=== PATIENT | female | born 1950 | race Hispanic/Latino ===

== ENCOUNTER → 2024-03-02 | Outpatient (CLI) | payer OTHER, MEDICARE ==
[~2024-03-02] MED LIST: ATOR10 PO; LOSA25TA41 PO
--- NOTE | 2024-03-04 17:53 | HMCSR ---
APPROVED REPORT Laterality: Bilateral Indications I77.1 Doppler Spectral Velocity Analysis PSV / EDVPSV / EDV ECA (R) 67 / cm/sECA (L) 55 / cm/s dICA (R) 74 / 25 cm/sdICA (L) 75 / 22 cm/s Jennifer (R) 84 / 27 cm/smICA (L) 54 / 15 cm/s pICA (R) 58 / 20 cm/spICA (L) 70 / 21 cm/s dCCA (R) 52 / 13 cm/sdCCA (L) 63 / 15 cm/s mCCA (R) 63 / 15 cm/smCCA (L) 57 / 10 cm/s pCCA (R) 85 / 20 cm/spCCA (L) 77 / 11 cm/s Vert (R) 35 / cm/sVert (L) 57 / cm/s Subl. (R) 113 / cm/sSubl. (L) 72 / cm/s ICA/CCA 0.99ICA/CCA 0.97 Technologist Impression Minimal plaque noted in the bilateral carotids, without hemodynamic significance. Bilateral vertebral arteries appear antegrade. Conclusion Minimal plaque noted in the bilateral carotids, without hemodynamic significance. Bilateral vertebral arteries appear antegrade. Conclusion Minimal plaque noted in the bilateral carotids, without hemodynamic significance. Bilateral vertebral arteries appear antegrade.
== END | disposition home or self-care (01) ==
LOC: SHCH 14:26
PROVIDERS: ATTEND Student in an Organized Health Care Education/Training Program
DX: I77.1 Stricture of artery (principal)
CPT/HCPCS: 93880

== ENCOUNTER → 2024-04-07 | Outpatient (CLI) | payer MEDICARE, OTHER ==
[~2024-04-07] MED LIST changes: +IOHEXOL 350 MG/ML 100ML INFUS..BTL IV ONE
--- NOTE | 2024-04-07 15:21 | HMCIMG ---
CT CARDIAC ANGIO W/CONT. CCTA HISTORY: Chest pain COMPARISON: None TECHNIQUE: Multiple sequential axial images of the chest were obtained along with the CT angiogram of the chest study. Patient was given 100 cc of Omnipaque through intravenous route. FINDINGS: There is no evidence of pulmonary nodule or parenchymal disease. No pleural effusion or pericardial effusion is seen. There is no evidence of pneumothorax. There are normal size mediastinal and hilar lymph nodes. The heart is not enlarged. Degenerative changes of the thoracolumbar spine are present. IMPRESSION: 1. No evidence of pulmonary nodule or effusion is seen. Please see CT angiogram report of coronary arteries.
== END | disposition home or self-care (01) ==
LOC: RAH 09:20
PROVIDERS: ATTEND Student in an Organized Health Care Education/Training Program
DX: I35.1 Nonrheumatic aortic (valve) insufficiency (principal); I21.4 Non-ST elevation (NSTEMI) myocardial infarction; M47.815 Spondylosis without myelopathy or radiculopathy, thoracolumbar region
CPT/HCPCS: 75574; Q9967